=== PATIENT | male | born 1990 | race Caucasian/White ===

== ENCOUNTER 2016-09-17 23:46 | Emergency (ER) | payer OTHER ==
[~2016-09-17 23:46] MED LIST: ADVIL200 M2 PO; BENTYL20 MG PO; BENZONATATE PO; DICLOFENAC PO; DOXYCYCLINE HY100 M1 PO; EC-NAPROSYN500 MG PO; HCTZ PO; IBUPROFEN PO; KEFLEX500 M1 PO; KETOPROFEN PO; LOMOTIL TABLET1 TAB PO; LORTAB 5/500 TA1 TA1 PO; MIRALAX17 GM PO; NO MEDICATIONS; PHENERGAN W/CO120 ML PO; PHENERGAN25 MG PO; PREDNISONE PO; VICODIN 5/500 T1 TAB PO; ZOFRAN PO
== END 2016-09-18 02:35 | disposition home or self-care (01) ==
LOC: CED 23:46
DX: S91.312A Laceration without foreign body, left foot, initial encounter (principal); F17.210 Nicotine dependence, cigarettes, uncomplicated; W45.8XXA Other foreign body or object entering through skin, initial encounter; Y92.009 Unspecified place in unspecified non-institutional (private) residence as the place of occurrence of the external cause
CPT/HCPCS: 99283

== ENCOUNTER 2016-11-02 14:20 | Emergency (ER) | payer OTHER ==
--- NOTE | ~2016-11-02 | CR142 ---
[facility] A Service of [facility] RADIOLOGY TEXT RESULTS PATIENT: COURTNEY RAYO LOCATION: SED : [birth year] UNIT #: [id number] AGE: [address]: OPAL ANDUJAR SEX: M ORDER DR: [id number] [place] [id number] E MR#: [id number] Acc #: [id number] NAME: COURTNEY RAYO : 1990 SEX: M STUDY DATE/TIME: 11/02/2016 14:54 UNIT: SED ROOM: STUDY DESCRIPTION: CR Hand Min 3 Views Rt Attending Physician: Catherine King Ordering Physician: Catherine King Primary Care Physician: Gale Reddy M.D. MEDICAL IMAGING REPORT This report is preliminary unless electronic signature is present. EXAM Right hand, 11/02 INDICATION Smashed hand between a forklift and glass at work today. Pain in the mid hand. FINDINGS 3 views of the right hand are compared with 09/19/2014. No fracture or malalignment is identified. There are no radiopaque foreign bodies. IMPRESSION Negative right hand. Dictated by... Iván Juarez Jr., M.D. THIS IS AN ELECTRONICALLY VERIFIED REPORT Iván Juarez Jr., M.D. at 11/02/2016 10:34 PM DANNA/carola TD: 11/02/2016 16:28 JOB #: [id number] MEDICAL IMAGING REPORT Page 1 of 1
== END 2016-11-02 16:00 | disposition home or self-care (01) ==
LOC: SED 14:20
DX: S60.221A Contusion of right hand, initial encounter (principal); F17.210 Nicotine dependence, cigarettes, uncomplicated; W23.0XXA Caught, crushed, jammed, or pinched between moving objects, initial encounter; Y92.69 Other specified industrial and construction area as the place of occurrence of the external cause
CPT/HCPCS: 29280; 73130; 99283